=== PATIENT | female | born 1945 | race Caucasian/White ===

== ENCOUNTER 2018-05-28 01:03 | Inpatient (IN) ==
[2018-05-28] MEDS ORDERED: Naloxone 0.4 MG/ML INJ IVP PRN ×2 (10:08→10:11)
[2018-05-28] MEDS ORDERED: Ondansetron 4 MG/2 ML VIAL IVP PRN (10:11)
[2018-05-28] MEDS ORDERED: *HR* Heparin 5,000 UNIT/ML VIAL IVP PRN ×2 (10:14)
[2018-05-28] MEDS ORDERED: Metoprolol XL (24 HR) Succ 50 MG TAB.ER.24H PO SCH (10:15)
[2018-05-28] MEDS ORDERED: Heparin 25,000 UNIT/250 ML D5W 25,000 UNIT/250 ML IV.SOLN IVC SCH (10:15)
[2018-05-28] MEDS: traMADol 50 MG TABLET PO SCH ×2 (11:28→18:08)
[2018-05-28] MEDS: Gabapentin 300 MG CAPSULE PO SCH ×2 (11:29→20:15)
[2018-05-28 11:52] LABS: INR 1.3; Prothrombin Time 14.6 Seconds (9.4-12.1)
[2018-05-28 12:04] LABS: Calcium 9.7 mg/dL (8.6-10.3); Potassium 4.3 mEq/L (3.5-5.1)
--- NOTE | 2018-05-28 13:36 | Internal Med History&Physical ---
Date of Encounter: 05/28/18 Time of Encounter: 12:00 Internal Medicine - H&P: HPI Chief complaint: Shortness of breath, right-sided chest pain Admitted From: Emergency Dept History of present illness: Ms. Gavin is a 73 year old female with recent right total knee replacement in February 2018, hypertension, pre-diabetes, chronic leg swelling, presented to the outside hospital ED with 3 day history of shortness of breath. Associated with right-sided chest pain under the rib cage, particularly worse on inspiration. Denies any fever/chills, sick contacts, palpitation, cough, sputum production, hemoptysis, orthopnea, or PND. She was also treated for C. difficile earlier this year and completed antibiotics a few weeks ago but continues to have intermittentm loose stools. No abdominal pain, dysuria, hematuria, or urinary frequency. At the outside hospital ED, she was tachycardic at 132, temperature of 100.9, but otherwise with stable blood pressure and good oxygen saturation on room air. EKG showed A. fib with RVR. Otherwise, workup was also be unremarkable with normal white blood cell count, creatinine 1.1 [baseline], and normal troponin. BNP was slightly elevated at 233. CTA of the chest demonstrated bilateral pulmonary emboli in right and left main pulmonary arteries with extension into the lobar branches and associated with small right pleural effusion. Patient was started on IV heparin, IV leavquin, 1 dose of Lasix 60 mg, and transferred to [facility] for further management. Past Med Surg Social Fam HX - Past Medical History Attestation: Yes The following information was validated with the patient. Medical history: arthritis, hyperlipidemia, hypertension Additional medical history: frequent lower extremity edema, pre-diabetes Psychiatric history: no psych history - Past Surgical History Surgical History: hip replacement, knee replacement Additional surgical history: Bilateral Hip and knee Replacement - Social History Smoking Status: Never smoker Smokeless Tobacco Status: No Alcohol use: none Drug use: none - Family History Father Hx Family Respiratory Disorders: Yes Hx Family Cancer: Yes (lung) Mother Hx Family Cancer: Yes (lung) Internal Medicine - H&P: Meds RX: Calcitriol [Rocaltrol] 0.25 mcg PO MOWEFR 09/10/17 [History] RX: Calcium Lactate 100 mg PO AD 09/10/17 [History] RX: Coconut Oil 2,000 mg PO DAILY 09/10/17 [History] RX: Ergocalciferol (VITAMIN D2) [Vitamin D2] 2,000 unit PO 1200 09/10/17 [History] RX: Lactobac/Bifidobac/Glob Pr Con [Ultra Renae Plus Capsule] 1 each PO DAILY 09/10/17 [History] RX: Metoprolol Succinate 100 mg PO DAILY 09/10/17 [History] RX: Omeprazole [PriLOSEC] 20 mg PO DAILY PRN 09/10/17 [History] RX: Tramadol HCl [Ultram] 50 mg PO Q6H 09/10/17 [History] RX: Diphenoxylate/Atropine [Lomotil 2.5 mg/0.025 mg] 1 tab PO QID PRN 03/04/18 [History] RX: Furosemide [Lasix] 40 mg PO DAILY PRN 03/04/18 [History] RX: Gabapentin [Neurontin] 300 mg PO QPM 03/04/18 [History] RX: Gabapentin [Neurontin] 600 mg PO HS 03/04/18 [History] RX: Ropinirole HCl [Requip] 2 mg PO TID 03/04/18 [History] Apixaban [Eliquis] 5 mg PO BID #60 tablet 05/28/18 [Rx] Allergy/AdvReac Type Severity Reaction Status Date / Time pioglitazone Allergy Swelling Verified 05/28/18 01:28 of Lip/Tongue/Throat Sulfa (Sulfonamide Allergy See Verified 05/28/18 01:28 Antibiotics) Comments sulfamethoxazole Allergy Redness of Verified 05/28/18 01:28 [From Bactrim] Skin trimethoprim [From Bactrim] Allergy Redness of Verified 05/28/18 01:28 Skin Amoxicillin [From Augmentin] AdvReac Diarrhea Verified 05/28/18 01:28 clavulanic acid AdvReac Diarrhea Verified 05/28/18 01:28 [From Augmentin] gabapentin AdvReac Nausea Verified 05/28/18 01:28 metformin AdvReac Diarrhea Verified 05/28/18 01:28 pregabalin [From Lyrica] AdvReac See Verified 05/28/18 01:28 Comments All Systems PM: A 10-system review of systems was performed and is negative for pertinent findings except as documented above in the HPI. - Constitutional Vitals: Temp Pulse Resp BP Pulse Ox 98.2 F 105 16 107/78 95 05/28/18 10:56 05/28/18 10:56 05/28/18 10:56 05/28/18 10:56 05/28/18 10:56 Exam: General: Alert and oriented, not in acute distress. HEENT:EOMI, pupils equal, round and reactive. Cardiovascular:Normal S1 & S2, No JVD. Pulse irregular and tachycardic Lungs: clear to auscultation, unable to appreciate any crackles/wheezes/rhonchi Abdomen:Soft, non-tender, no rigidity. Extremities:No deformity or swelling. B/L knee scars appear to be well-healed Neurological:Normal cognition and motor skills. Non-focal Skin:Normal color, no rash, no lesions. Pulses:Carotid and radial pulses normal +2. Rest of the physical exam is non contributory Internal Med - H&P Results - Labs CBC & Chem 7: 05/28/18 11:23 Labs: BMP 05/28/18 11:23 Sodium 137 Potassium 4.3 Chloride 104 Carbon Dioxide 26 BUN 37 H Creatinine 1.15 Glucose 123 H Calcium 9.7 Cardiac Enzymes 05/28/18 Range/Units 11:23 Troponin I < 0.03 (< 0.04) ng/mL - Assessment and Plan (1) Bilateral pulmonary embolism Current Visit: Yes Status: Acute Assessment and plan: Presented with progressive shortness of breath in the setting of relatively recent knee surgery Found to have bilateral PE in both pulmonary arteries No evidence of hypoxia BMP slightly elevated however, we will check echocardiogram for any evidence of right heart strain Continue heparin drip, will likely transition to Eliquis on discharge (2) New onset atrial fibrillation Current Visit: Yes Status: Acute Assessment and plan: No prior history of cardiac disease. Found to be in A. fib with RVR on presentation with ventricular rate of 130s Currently heart rate fluctuating between 105 and 110. She is reportedly on Toprol at home which we will resume Start Cardizem drip if heart rate remains persisting above 110 ChadVasc score of 3 for age, sex, and hypertension. Started on hep gtt as above check TSH, K>4, Mg >2 trend troponin to rule out ACS echocardiogram (3) Essential hypertension Current Visit: No Status: Chronic Assessment and plan: Resume beta ivonne as above (4) Obesity (BMI 30-39.9) Current Visit: Yes Status: Chronic Assessment and plan: lifestyle modifications emphasized (5) Status post total right knee replacement Current Visit: No Status: Chronic Assessment and plan: PT/OT from tomorrow (6) DVT prophylaxis Current Visit: Yes Status: Acute Assessment and plan: hep gtt - Time Spent With Patient Total time spent is greater than 50% in coordination of care (as documented) at patient's floor/unit and/or counseling patient: Greater than 35 minutes
--- NOTE | 2018-05-28 15:37 | Electrocardiograph Report ---
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
[2018-05-28] MEDS ORDERED: *HR* Metoprolol 5 MG/5 ML VIAL IVP PRN (18:00)
[2018-05-28] MEDS: rOPINIRole 1 MG TABLET PO SCH ×2 (18:08→20:15)
[2018-05-29] MEDS: traMADol 50 MG TABLET PO SCH ×5 (00:07→23:13)
[2018-05-29] MEDS: rOPINIRole 1 MG TABLET PO SCH ×4 (00:07→23:13)
[2018-05-29 01:57] LABS: Basophils % 0.4 %; Eosinophils # 0.2 K/mcL (0.0-0.6); Eosinophils % 3.8 %; Hematocrit 31.7 % (35.3-44.9); Hemoglobin 10.1 g/dL (11.5-15.4); Immature Granulocytes % 0.4 % (0-4); Lymphocytes # 0.9 K/mcL (0.6-4.6); Lymphocytes % 17.5 %; Mean Corpuscular HGB Conc 31.9 g/dL (31.6-35.5); Mean Corpuscular Hemoglobin 30.1 pg (28.0-33.3); Mean Corpuscular Volume 94.3 fL (83.0-100.0); Mean Platelet Volume 9.5 fL (9.4-12.4); Monocytes # 0.5 K/mcL (0.0-1.3); Monocytes % 9.8 %; Neutrophils # 3.6 K/mcL (1.6-8.9); Platelet Count 177 K/mcL (140-400); Red Blood Count 3.36 M/mcL (3.82-4.97); Red Cell Distribution Width 14.4 % (11.5-14.5); Segmented Neutrophils % 68.1 %
[2018-05-29 02:14] LABS: Calcium 8.8 mg/dL (8.6-10.3); Magnesium 2.1 mg/dL (1.6-2.6); Potassium 4.5 mEq/L (3.5-5.1)
[2018-05-29] MEDS: Heparin 25,000 UNIT/250 ML D5W 25,000 UNIT/250 ML IV.SOLN IVC SCH ×3 (05:28→20:37)
[2018-05-29] MEDS ORDERED: Metoprolol XL (24 HR) Succ 50 MG TAB.ER.24H PO SCH (09:00)
[2018-05-29] MEDS: Gabapentin 300 MG CAPSULE PO SCH ×2 (10:41→20:29)
[2018-05-29] MEDS: Metoprolol XL (24 HR) Succ 50 MG TAB.ER.24H PO SCH (10:42)
--- NOTE | 2018-05-29 14:04 | Internal Med Progress Note ---
Hospitalist Progress Note - Encounter Date of Encounter: 05/29/18 Time of Encounter: 10:30 - Subjective Interval History: States that her dyspnea at rest had significantly improved but finds herself short of breath if she starts to walk ~ 10-15 feet. No chest pain, cough, hemoptysis, or palpitation. Heart rate overnight remained around 110. No signs and symptoms of bleeding. - Exam Vitals: Temp Pulse Resp BP Pulse Ox 98.5 F 112 14 94/82 97 05/29/18 07:06 05/29/18 07:06 05/29/18 07:06 05/29/18 07:06 05/29/18 07:06 Exam: General: Alert and oriented, not in acute distress. Cardiovascular:Normal S1 & S2, No JVD. Pulse irregular and tachycardic Lungs: clear to auscultation, unable to appreciate any crackles/wheezes/rhonchi Abdomen:Soft, non-tender, no rigidity. Extremities:No deformity or swelling. B/L knee scars appear to be well-healed Neurological:Normal cognition and motor skills. Non-focal - Assessment and Plan (1) Bilateral pulmonary embolism Current Visit: Yes Status: Acute Assessment and Plan: Presented with progressive shortness of breath in the setting of relatively recent knee surgery Found to have bilateral PE in both pulmonary arteries No evidence of hypoxia at rest but does endorse dyspnea on exertion. Will perform 6 min walk test BMP slightly elevated, Echo did not show any evidence of right heart strain Continue heparin drip, plan to transition to Eliquis on discharge. Cool check ran by [facility] (2) New onset atrial fibrillation Current Visit: Yes Status: Acute Assessment and Plan: No prior history of cardiac disease. Found to be in A. fib with RVR on presentation with ventricular rate of 130s HR continues to be around 110 despite restarting her home dose of Toprol will add PO Cardizem 30mg Q6, if it remains poorly controlled in the afternoon, will start cardizem gtt at 5mg/hr ChadVasc score of 3 for age, sex, and hypertension. on hep gtt as above TSH normal, ACS ruled out with serial troponins echocardiogram showed intact EF but LA moderately dilated K>4, Mg >2 will need sleep study as outpatient (3) Essential hypertension Current Visit: No Status: Chronic Assessment and Plan: Resume beta ivonne and cardizem added as above (4) Obesity (BMI 30-39.9) Current Visit: Yes Status: Chronic Assessment and Plan: lifestyle modifications emphasized (5) Status post total right knee replacement Current Visit: No Status: Chronic Assessment and Plan: stable (6) DVT prophylaxis Current Visit: Yes Status: Acute Assessment and Plan: hep gtt - Time Spent with Patient Total time spent is greater than 50% in coordination of care (as documented) at patient's floor/unit and/or counseling patient: 25 - 35 minutes Plan of Care Discussed with: patient Internal Medicine: Result - Labs CBC & Chem 7: 05/29/18 01:44 05/29/18 01:44 Labs: Short CBC 05/29/18 Range/Units 01:44 WBC 5.3 (4.3-11.1) K/mcL Hgb 10.1 L (11.5-15.4) g/dL Hct 31.7 L (35.3-44.9) % Plt Count 177 (140-400) K/mcL Neutrophils # 3.6 (1.6-8.9) K/mcL BMP 05/29/18 01:44 Sodium 137 Potassium 4.5 Chloride 105 Carbon Dioxide 25 BUN 39 H Creatinine 1.23 H Glucose 125 H Calcium 8.8 Cardiac Enzymes 05/29/18 05/29/18 Range/Units 06:15 11:22 Troponin I < 0.03 < 0.03 (< 0.04) ng/mL - ABG Interpretation ABG results: PT/INR, D-dimer PT 14.6 Seconds (9.4-12.1) H 05/28/18 11:23 - Impressions Impressions Echocardiogram 05/28/18 10:14 Impressions: LVEF 60%. Normal LV chamber size and wall thickness. Indeterminate diastolic function. Normal right ventricular structure and function. Moderately dilated left atrium. Mild mitral regurgitation. No evidence of pulmonary hypertension. Severe mitral annular calcification Left Ventricular Wall Motion: Rest Echo Findings All wall segments showed normal motion. Findings: Study Quality * Technically adequate exam. ECG Findings * Atrial fibrillation. Left Ventricle * LVEF 60%. * Normal LV chamber size and wall thickness. * Indeterminate diastolic function. Right Ventricle * Normal right ventricular structure and function. Left Atrium * Moderately dilated left atrium. Right Atrium * Mildly dilated right atrium. Aortic Valve * Aortic valve not well visualized. * Moderately sclerotic aortic valve leaflets. * No aortic regurgitation. Mitral Valve * Severe mitral annular calcification * Mild mitral regurgitation. * No mitral stenosis. Tricuspid Valve * Trace tricuspid regurgitation. * No tricuspid stenosis. * Normal tricuspid valve structure. * No evidence of pulmonary hypertension. Pulmonic Valve * Pulmonic valve not well visualized. Aorta * Normally sized aortic root. Pericardium * The pericardium appears normal. IVC * The IVC is dilated. Pulmonary Artery * Normal visualized portions of the main pulmonary artery. Consult Discharge Plan - Plan Referrals: Adrienne Peoples CNP [Primary Care Provider] - Prescriptions: Apixaban [Eliquis] 5 mg PO BID #60 tablet
[2018-05-30 04:19] LABS: Basophils % 0.6 %; Eosinophils # 0.2 K/mcL (0.0-0.6); Eosinophils % 3.9 %; Hematocrit 33.9 % (35.3-44.9); Hemoglobin 10.8 g/dL (11.5-15.4); Immature Granulocytes % 0.2 % (0-4); Lymphocytes % 18.6 %; Mean Corpuscular HGB Conc 31.9 g/dL (31.6-35.5); Mean Corpuscular Hemoglobin 29.8 pg (28.0-33.3); Mean Corpuscular Volume 93.6 fL (83.0-100.0); Mean Platelet Volume 9.5 fL (9.4-12.4); Monocytes # 0.5 K/mcL (0.0-1.3); Monocytes % 8.3 %; Neutrophils # 3.7 K/mcL (1.6-8.9); Platelet Count 233 K/mcL (140-400); Red Blood Count 3.62 M/mcL (3.82-4.97); Red Cell Distribution Width 14.6 % (11.5-14.5); Segmented Neutrophils % 68.4 %
[2018-05-30 04:35] LABS: Calcium 8.9 mg/dL (8.6-10.3); Potassium 4.7 mEq/L (3.5-5.1)
[2018-05-30] MEDS: traMADol 50 MG TABLET PO SCH (06:12)
[2018-05-30 07:47] VITALS: BP 122/60
[2018-05-30] MEDS: Gabapentin 300 MG CAPSULE PO SCH (10:19)
[2018-05-30] MEDS: Metoprolol XL (24 HR) Succ 50 MG TAB.ER.24H PO SCH (10:19)
--- NOTE | 2018-05-30 10:40 | Discharge Summary ---
- NOTES TO OUTPATIENT PROVIDER Notes to Outpatient Provider: Follow up with PCP as outpatient for newly diagnosed atrial fibrillation and bilateral PE Orders not resulted at time of discharge: Pending orders 05/31/18 03:57 Heparin anti-factor XA UFH [COAG] Timed Date of Encounter: 05/30/18 Time of Encounter: 07:45 - Discharge Diagnosis (1) Bilateral pulmonary embolism Priority: Primary Status: Acute (2) New onset atrial fibrillation Priority: Secondary Status: Acute (3) Essential hypertension Priority: Secondary Status: Chronic (4) Obesity (BMI 30-39.9) Priority: Secondary Status: Chronic (5) Status post total right knee replacement Priority: Secondary Status: Chronic (6) DVT prophylaxis Priority: Secondary Status: Acute Hospital course: Ms. Gavin is a 73 year old female with recent right total knee replacement in February 2018, hypertension, pre-diabetes, chronic leg swelling, who was admitted for bilateral PE and new onset of atrial fibrillation. Did not require O2. Clinically improved with heparin gtt and initiation of Cardizem. No evidence of right heart strain or valvular disease on echocardiogram. She will be discharged home on PO eliquis and PO Cardizem 180mg QD and follow up with PCP as outpatient. Also recommend sleep study as an outpatient. Discharge discussed with: patient, family, nurse - Time Spent with Patient Total time spent providing and/or coordinating discharge services: 32 mins - Discharge Medications Prescriptions: New Apixaban [Eliquis] 5 mg PO BID #60 tablet Diltiazem CD (24hr) [Cardizem CD] 180 mg PO DAILY #30 cap.er.24h Continue Metoprolol Succinate 100 mg PO DAILY Ergocalciferol (VITAMIN D2) [Vitamin D2] 2,000 unit PO 1200 Tramadol HCl [Ultram] 50 mg PO Q6H PRN PRN Reason: Pain Calcitriol [Rocaltrol] 0.25 mcg PO MOWEFR Omeprazole [PriLOSEC] 20 mg PO DAILY PRN PRN Reason: Heartburn Lactobac/Bifidobac/Glob Pr Con [Ultra Renae Plus Capsule] 1 each PO DAILY Coconut Oil 2,000 mg PO DAILY Calcium Lactate 100 mg PO AD Furosemide [Lasix] 40 mg PO DAILY PRN PRN Reason: Edema Gabapentin [Neurontin] 600 mg PO HS Gabapentin [Neurontin] 300 mg PO QPM Ropinirole HCl [Requip] 2 mg PO TID Diphenoxylate/Atropine [Lomotil 2.5 mg/0.025 mg] 1 tab PO QID PRN PRN Reason: Diarrhea Home Medications: Calcitriol [Rocaltrol] 0.25 mcg PO MOWEFR 09/10/17 [History] Calcium Lactate 100 mg PO AD 09/10/17 [History] Coconut Oil 2,000 mg PO DAILY 09/10/17 [History] Ergocalciferol (VITAMIN D2) [Vitamin D2] 2,000 unit PO 1200 09/10/17 [History] Lactobac/Bifidobac/Glob Pr Con [Ultra Renae Plus Capsule] 1 each PO DAILY 09/10/17 [History] Metoprolol Succinate 100 mg PO DAILY 09/10/17 [History] Omeprazole [PriLOSEC] 20 mg PO DAILY PRN 09/10/17 [History] Tramadol HCl [Ultram] 50 mg PO Q6H PRN 09/10/17 [History] Diphenoxylate/Atropine [Lomotil 2.5 mg/0.025 mg] 1 tab PO QID PRN 03/04/18 [History] Furosemide [Lasix] 40 mg PO DAILY PRN 03/04/18 [History] Gabapentin [Neurontin] 300 mg PO QPM 03/04/18 [History] Gabapentin [Neurontin] 600 mg PO HS 03/04/18 [History] Ropinirole HCl [Requip] 2 mg PO TID 03/04/18 [History] Apixaban [Eliquis] 5 mg PO BID #60 tablet 05/28/18 [Rx] Diltiazem CD (24hr) [Cardizem CD] 180 mg PO DAILY #30 cap.er.24h 05/30/18 [Rx] Allergies/Adverse Reactions: Allergy/AdvReac Type Severity Reaction Status Date / Time pioglitazone Allergy Swelling Verified 05/28/18 01:28 of Lip/Tongue/Throat Sulfa (Sulfonamide Allergy See Verified 05/28/18 01:28 Antibiotics) Comments sulfamethoxazole Allergy Redness of Verified 05/28/18 01:28 [From Bactrim] Skin trimethoprim [From Bactrim] Allergy Redness of Verified 05/28/18 01:28 Skin Amoxicillin [From Augmentin] AdvReac Diarrhea Verified 05/28/18 01:28 clavulanic acid AdvReac Diarrhea Verified 05/28/18 01:28 [From Augmentin] gabapentin AdvReac Nausea Verified 05/28/18 01:28 metformin AdvReac Diarrhea Verified 05/28/18 01:28 pregabalin [From Lyrica] AdvReac See Verified 05/28/18 01:28 Comments Date of admission: 05/28/18 13:23 Primary care physician: Adrienne Peoples CNP Consults: 05/28/18 09:23 Consult to Pastoral Services [CONS] Routine Comment: - Constitutional Vitals: Temp Pulse Resp BP Pulse Ox 97.9 F 87 18 122/60 90 05/30/18 07:44 05/30/18 07:44 05/30/18 07:44 05/30/18 07:44 05/30/18 04:41 Exam: General: Alert and oriented, not in acute distress. Cardiovascular:Normal S1 & S2, No JVD. Pulse irregular, normal rate Lungs: clear to auscultation Abdomen:Soft, non-tender, no rigidity. Extremities:No deformity or swelling. B/L knee scars appear to be well-healed Neurological:Normal cognition and motor skills. Non-focal - Patient Status Disposition: Home, Self-Care Condition: Fair Functional capacity at discharge: independent ambulation Overall status at discharge: patient is progressing back to baseline - Discharge Instructions Instructions: Pulmonary Embolism (DC), Atrial Fibrillation (DC) Follow Up With: Adrienne Peoples CNP [Primary Care Provider] - (Referral request made, physicians office will call patient. ) Additional Instructions: Start PO Eliquis and cardizem for Afib as well as PE Recommend sleep study as outpatient Follow up with PCP - Diet and Activity Activity: resume usual activities as tolerated Diet: low salt diet
== END 2018-05-30 13:12 | disposition home or self-care (01) | DRG 176 ==
LOC: 2NENU → SUATTDRO 08:25
PROVIDERS: ADMIT Internal Medicine; ATTEND Internal Medicine

== ENCOUNTER 2019-10-05 06:25 | Observation (INO) ==
[~2019-10-05 06:25] MED LIST: Famotidine 20 MG/2 ML VIAL IVP ONE
[2019-10-05] MEDS ORDERED: CeFAZolin Syr 3,000MG/30 ML 3,000 MG/30 ML SYRINGE IVPB ONE (06:39)
[2019-10-05] MEDS ORDERED: Ringers Solution, Lactated 1,000 ML IVC SCH (06:45)
[2019-10-05] MEDS ORDERED: *HR* Rocuronium Bromide 50 MG/5 ML VIAL ONE (06:46)
[2019-10-05] MEDS ORDERED: Lidocaine -MPF 2% 2 ML VIAL ONE (06:46)
[2019-10-05] MEDS ORDERED: Lidocaine HCL 4 ML Topical Solution (Laryng-O-Jet Kit Sterile Pak) TP ONE (06:46)
[2019-10-05] MEDS ORDERED: Ondansetron 4 MG/2 ML VIAL ONE (06:46)
[2019-10-05] MEDS ORDERED: *HR* Phenylephrine 10 MG/ML VIAL ONE (06:56)
[2019-10-05] MEDS ORDERED: *HR* Propofol 200 MG/20 ML VIAL IVP ONE (06:59)
[2019-10-05] MEDS ORDERED: *HR* FentaNYL (PF) 100 MCG/2 ML VIAL ONE (06:59)
[2019-10-05] MEDS ORDERED: *HR* Remifentanil 1 MG VIAL IVP ONE ×3 (06:59→11:44)
[2019-10-05] MEDS ORDERED: *HR* Midazolam HCl 2 MG/2 ML VIAL ONE (06:59)
[2019-10-05 07:20] LABS: Basophils % 0.6 %; Eosinophils # 0.2 K/mcL (0.0-0.6); Eosinophils % 2.6 %; Hematocrit 44.1 % (35.3-44.9); Hemoglobin 13.9 g/dL (11.5-15.4); Immature Granulocytes % 0.3 % (0-4); Lymphocytes # 0.6 K/mcL (0.6-4.6); Lymphocytes % 9.5 %; Mean Corpuscular HGB Conc 31.5 g/dL (31.6-35.5); Mean Corpuscular Hemoglobin 30.1 pg (28.0-33.3); Mean Corpuscular Volume 95.5 fL (83.0-100.0); Mean Platelet Volume 9.6 fL (9.4-12.4); Monocytes # 0.4 K/mcL (0.0-1.3); Monocytes % 5.6 %; Neutrophils # 5.1 K/mcL (1.6-8.9); Platelet Count 237 K/mcL (140-400); Red Blood Count 4.62 M/mcL (3.82-4.97); Red Cell Distribution Width 14.6 % (11.5-14.5); Segmented Neutrophils % 81.4 %; White Blood Count 6.2 K/mcL (4.3-11.1)
[2019-10-05] MEDS ORDERED: Gabapentin 300 MG CAPSULE PO ONE (07:30)
[2019-10-05] MEDS ORDERED: Bacitracin 50,000 UNIT, Polymyxin B Sulfate 500,000 UNIT, Sodium Chloride IRRigation 1,... IR ONE ×2 (07:45→08:15)
[2019-10-05] MEDS ORDERED: *HR* OxyCODONE Immed Rel 5 MG TABLET PO PRN (07:48)
[2019-10-05] MEDS ORDERED: *HR* HYDROmorphone PF 0.5 MG/0.5 ML SYRINGE IVP PRN (07:48)
[2019-10-05] MEDS ORDERED: *HR* FentaNYL (PF) 100 MCG/2 ML VIAL IVP PRN (07:48)
[2019-10-05] MEDS ORDERED: Albuterol 2.5 MG/3 ML NEBULIZER IH PRN (07:50)
[2019-10-05] MEDS ORDERED: Dexamethasone 4 MG/ML VIAL ONE (08:32)
[2019-10-05] MEDS ORDERED: *HR* Metoprolol 5 MG/5 ML VIAL IVP ONE (09:15)
[2019-10-05] MEDS ORDERED: Albumin Human 5% 12.5 GM/250 ML IV.SOLN ONE (09:48)
[2019-10-05] MEDS ORDERED: *HR* Heparin 5,000 UNIT/ML VIAL ONE (10:20)
[2019-10-05] MEDS ORDERED: *HR* HYDROMORPHONE 2 MG/ML VIAL ONE (12:59)
[2019-10-05] MEDS ORDERED: *HR* Labetalol 20 MG/4 ML SYRINGE IVP ONE (13:00)
[2019-10-05] MEDS ORDERED: Ondansetron 4 MG/2 ML VIAL IVP PRN (14:45)
[2019-10-05] MEDS ORDERED: Naloxone 0.4 MG/ML INJ IVP PRN (14:45)
[2019-10-05] MEDS: CeFAZolin 2 GM/120 ML BAG IVPB SCH (16:31)
[2019-10-05] MEDS: rOPINIRole 1 MG TABLET PO SCH ×3 (16:31→23:55)
[2019-10-05] MEDS: Furosemide 40 MG TABLET PO SCH (16:31)
[2019-10-05] MEDS ORDERED: DilTIAZem CD (24hr) 180 MG CAP.ER.24H PO ONE (17:19)
[2019-10-05] MEDS: *HR* OxyCODONE Immed Rel 5 MG TABLET PO PRN (20:41)
[2019-10-05] MEDS ORDERED: Apixaban 5 MG TABLET PO SCH (21:00)
[2019-10-05] MEDS: Acetaminophen 325 MG TABLET PO PRN (22:02)
[2019-10-05] MEDS: *HR* HYDROcodone/Acet 5/325 mg TABLET PO PRN (22:43)
[2019-10-06] MEDS: CeFAZolin 2 GM/120 ML BAG IVPB SCH (00:46)
[2019-10-06] MEDS: *HR* OxyCODONE Immed Rel 5 MG TABLET PO PRN ×3 (00:47→20:31)
[2019-10-06 06:12] LABS: Basophils % 0.2 %; Hematocrit 32.3 % (35.3-44.9); Immature Granulocytes % 0.4 % (0-4); Lymphocytes # 0.6 K/mcL (0.6-4.6); Lymphocytes % 5.9 %; Mean Corpuscular HGB Conc 32.2 g/dL (31.6-35.5); Mean Corpuscular Hemoglobin 31.4 pg (28.0-33.3); Mean Corpuscular Volume 97.6 fL (83.0-100.0); Mean Platelet Volume 9.9 fL (9.4-12.4); Monocytes # 0.7 K/mcL (0.0-1.3); Monocytes % 6.6 %; Neutrophils # 9.4 K/mcL (1.6-8.9); Platelet Count 216 K/mcL (140-400); Red Blood Count 3.31 M/mcL (3.82-4.97); Red Cell Distribution Width 14.6 % (11.5-14.5); Segmented Neutrophils % 86.9 %; White Blood Count 10.8 K/mcL (4.3-11.1)
[2019-10-06 06:13] LABS: Hemoglobin 10.4 g/dL (11.5-15.4)
[2019-10-06 06:30] LABS: Calcium 8.8 mg/dL (8.6-10.3); Potassium 4.7 mEq/L (3.5-5.1)
[2019-10-06] MEDS: Aspirin Enteric Coated 81 MG Tablet PO SCH (08:22)
[2019-10-06] MEDS: DilTIAZem CD (24hr) 180 MG CAP.ER.24H PO SCH (08:22)
[2019-10-06] MEDS: Metoprolol XL (24 HR) Succ 50 MG TAB.ER.24H PO SCH (08:23)
[2019-10-06] MEDS: Lactobacillus 1 EACH CAP.SPRINK PO SCH (08:24)
[2019-10-06] MEDS: Apixaban 5 MG TABLET PO SCH ×2 (08:24→20:32)
[2019-10-06] MEDS: Cholecalciferol (D-3) 1,000 UNIT (25MCG) TABLET PO SCH (08:25)
[2019-10-06] MEDS ORDERED: PLEXUS SLIM PO SCH (09:00)
[2019-10-06] MEDS: Ringers Solution, Lactated 1,000 ML IVC SCH ×2 (10:07→10:08)
[2019-10-06] MEDS: COCONUT OIL 2000 MG PO SCH (10:08)
[2019-10-06] MEDS: (Ubidecarenone [Co Q-10] 200 MG) PO SCH (10:08)
[2019-10-06] MEDS: (Empagliflozin [Jardiance] 10 MG) PO SCH (10:08)
[2019-10-06] MEDS: *HR* HYDROcodone/Acet 5/325 mg TABLET PO PRN ×3 (10:09→23:32)
[2019-10-06] MEDS: Furosemide 40 MG TABLET PO SCH ×2 (10:15→16:35)
[2019-10-06] MEDS: calcitrioL 0.25 MCG CAPSULE PO SCH (10:15)
[2019-10-06] MEDS: Gabapentin 300 MG CAPSULE PO SCH ×2 (16:34→20:31)
[2019-10-06] MEDS: rOPINIRole 1 MG TABLET PO SCH ×3 (16:35→23:32)
[2019-10-06] MEDS ORDERED: *HR* Dextrose 50 % in Water (Vial) 50 ML VIAL IVP PRN (21:13)
[2019-10-06] MEDS ORDERED: Dextrose Gel 15 GM/37.5 ML TUBE PO PRN ×2 (21:13)
[2019-10-06] MEDS ORDERED: D5% in Water 1,000 ML IVC PRN (21:13)
[2019-10-06] MEDS: Insulin LISPRO 300 UNITS/3 ML VIAL SQ SCH (23:36)
[2019-10-07] MEDS: *HR* OxyCODONE Immed Rel 5 MG TABLET PO PRN ×3 (01:27→20:26)
[2019-10-07 01:47] LABS: Bilirubin,Urine Negative (Negative); Blood,Urine Negative (Negative); Clarity,Urine Clear (Clear); Color,Urine Colorless (Yellow); Glucose,Urine (UA) Normal (Normal); Ketones,Urine Negative (Negative); Leukocyte Esterase,Urine Negative (Negative); Nitrite,Urine Negative (Negative); Protein,Urine Negative (Neg-Trace); Specific Gravity,Urine 1.009 (1.010-1.025); Urobilinogen,Urine Normal (Normal)
[2019-10-07 03:03] LABS: Hematocrit 32.1 % (35.3-44.9); Hemoglobin 10.4 g/dL (11.5-15.4); Mean Corpuscular HGB Conc 32.4 g/dL (31.6-35.5); Mean Corpuscular Volume 98.8 fL (83.0-100.0); Mean Platelet Volume 10.2 fL (9.4-12.4); Platelet Count 215 K/mcL (140-400); Red Blood Count 3.25 M/mcL (3.82-4.97); Red Cell Distribution Width 14.9 % (11.5-14.5); White Blood Count 12.4 K/mcL (4.3-11.1)
[2019-10-07] MEDS: Metoprolol XL (24 HR) Succ 50 MG TAB.ER.24H PO SCH (09:09)
[2019-10-07] MEDS: Apixaban 5 MG TABLET PO SCH ×2 (09:09→20:12)
[2019-10-07] MEDS: DilTIAZem CD (24hr) 180 MG CAP.ER.24H PO SCH (09:10)
[2019-10-07] MEDS: Aspirin Enteric Coated 81 MG Tablet PO SCH (09:10)
[2019-10-07] MEDS: Furosemide 40 MG TABLET PO SCH ×2 (09:10→17:32)
[2019-10-07] MEDS: Cholecalciferol (D-3) 1,000 UNIT (25MCG) TABLET PO SCH (09:11)
[2019-10-07] MEDS: (Ubidecarenone [Co Q-10] 200 MG) PO SCH (09:11)
[2019-10-07] MEDS: COCONUT OIL 2000 MG PO SCH (09:11)
[2019-10-07] MEDS: Lactobacillus 1 EACH CAP.SPRINK PO SCH (09:11)
[2019-10-07] MEDS: (Empagliflozin [Jardiance] 10 MG) PO SCH (09:11)
[2019-10-07] MEDS: Gabapentin 300 MG CAPSULE PO SCH ×4 (09:11→20:12)
[2019-10-07] MEDS: Insulin LISPRO 300 UNITS/3 ML VIAL SQ SCH ×4 (09:13→20:20)
[2019-10-07] MEDS: rOPINIRole 1 MG TABLET PO SCH ×3 (17:32→23:21)
[2019-10-07] MEDS: Ringers Solution, Lactated 1,000 ML IVC SCH ×3 (20:14→20:16)
[2019-10-07] MEDS: *HR* HYDROcodone/Acet 5/325 mg TABLET PO PRN (22:40)
[2019-10-08] MEDS: Acetaminophen 325 MG TABLET PO PRN (02:00)
[2019-10-08] MEDS: *HR* OxyCODONE Immed Rel 5 MG TABLET PO PRN ×3 (04:48→15:37)
[2019-10-08] MEDS: Ringers Solution, Lactated 1,000 ML IVC SCH (04:58)
[2019-10-08] MEDS: Furosemide 40 MG TABLET PO SCH (09:12)
[2019-10-08] MEDS: Lactobacillus 1 EACH CAP.SPRINK PO SCH (09:12)
[2019-10-08] MEDS: Cholecalciferol (D-3) 1,000 UNIT (25MCG) TABLET PO SCH (09:12)
[2019-10-08] MEDS: Gabapentin 300 MG CAPSULE PO SCH ×2 (09:13→15:37)
[2019-10-08] MEDS: DilTIAZem CD (24hr) 180 MG CAP.ER.24H PO SCH (09:13)
[2019-10-08] MEDS: calcitrioL 0.25 MCG CAPSULE PO SCH (09:13)
[2019-10-08] MEDS: Aspirin Enteric Coated 81 MG Tablet PO SCH (09:13)
[2019-10-08] MEDS: Metoprolol XL (24 HR) Succ 50 MG TAB.ER.24H PO SCH (09:13)
[2019-10-08] MEDS: Apixaban 5 MG TABLET PO SCH (09:13)
[2019-10-08] MEDS: Insulin LISPRO 300 UNITS/3 ML VIAL SQ SCH ×2 (09:17→12:22)
[2019-10-08] MEDS: COCONUT OIL 2000 MG PO SCH (09:18)
[2019-10-08] MEDS: (Empagliflozin [Jardiance] 10 MG) PO SCH (09:19)
[2019-10-08] MEDS: (Ubidecarenone [Co Q-10] 200 MG) PO SCH (09:19)
[2019-10-08 15:28] VITALS: BP 150/78
== END 2019-10-08 16:54 ==
LOC: SAMDAY 06:25 → 3NENU 06:25
PROVIDERS: ADMIT Orthopaedic Surgery Orthopaedic Surgery of the Spine; ATTEND Orthopaedic Surgery Orthopaedic Surgery of the Spine